=== PATIENT | female | born 1955 ===

== ENCOUNTER 2018-08-22 00:20 | Inpatient (IN) | payer BC ==
[~2018-08-22] VITALS: Ht 152.4 cm; Wt 83.0 kg
[2018-08-22] VITALS (14 sets, daily range): BP systolic 102–157; BP diastolic 52–79; PULSE 59–75; TEMP 97.4–98.4
[2018-08-22] MEDS ORDERED: PROZAC40 MG PO ×2 (00:55)
[2018-08-22] MEDS ORDERED: GLUCOSAMIN 500 PO (00:56)
[2018-08-22] MEDS ORDERED: MOBIC 7.5MG7.5 MG PO (00:57)
[2018-08-22] MEDS ORDERED: TYLENOL 500MG500 MG PO (00:57)
[2018-08-22] MEDS ORDERED: MULTI VITAMINS1 TAB PO (00:58)
[2018-08-22] MEDS ORDERED: MOTRIN 800800 MG/TAB PO (00:59)
[2018-08-22] MEDS ORDERED: RT ALBUTER2.5 MG/0.5 IH (00:59)
[2018-08-22] MEDS ORDERED: ULTRAM 50MG TAB50 MG PO (01:00)
[2018-08-22] MEDS ORDERED: NORCO 325 MG-51 TAB PO (01:01)
--- NOTE | 2018-08-22 01:25 | NUR ---
Pt. arrived to the floor via ems services. Pt. is A&OX3, assessment complete. INT to rt. ac patent. Pt. reports pain at a 2 on pain scale at this time. Pt. denies further needs, call light within reach.
[2018-08-22 02:32] LABS: COLLECTION METHOD CATHETER
[2018-08-22 02:34] LABS: BASO % 0.3 % (0.0-2.0); EOS # 0.1 (0.0-0.7); GRAN # 6.6 (1.4-6.5); GRAN % 68.8 % (42.2-75.2); HEMATOCRIT 40.6 % (37.0-47.0); LYMPH % 21.1 % (20.0-51.0); MEAN CELL VOLUME 91 fl (80.0-100.0); MEAN CORPUSCULAR HEMOGLOBIN 29 pg (27.0-31.0); MEAN CORPUSCULAR HGB CONC 32 g/dl (33.0-37.0); MEAN PLATELET VOLUME 8.8 fl (7.4-10.4); MONO # 0.8 (0.1-0.6); MONO % 8.5 % (1.7-9.3); PLATELET COUNT 200 K/mm3 (130-400); RED BLOOD COUNT 4.45 M/mm3 (4.10-5.30)
[2018-08-22 02:40] LABS: MUCOUS Present /lpf; PH 5 (5-8); SQUAMOUS EPITHELIAL None Seen /hpf; URINE APPEARANCE Clear; URINE BACTERIA None Seen /hpf; URINE BILIRUBIN Negative (NEGATIVE); URINE BLOOD Negative (NEGATIVE); URINE COLOR Yellow; URINE GLUCOSE Negative (NEGATIVE); URINE KETONE Trace (NEGATIVE); URINE LEUKOCYTE ESTERASE Negative (NEGATIVE); URINE NITRATE Negative (NEGATIVE); URINE PROTEIN(semi-quant) 1+ (NEGATIVE); URINE RBC 0-2 /hpf; URINE UROBILINOGEN Negative (NEGATIVE)
[2018-08-22 02:46] LABS: INR 1.2 (0.8-3.0); PROTHROMBIN TIME 13.7 SECONDS (9.7-12.8)
[2018-08-22 02:48] LABS: ALBUMIN 4.1 gm/dL (3.5-5.0); BILIRUBIN,TOTAL 0.4 mg/dL (0.0-1.0); CALCIUM 9.5 mg/dL (8.4-10.2); CREATININE, serum 0.53 mg/dL (0.52-1.25); POTASSIUM 3.9 mmol/L (3.4-5.0); TOTAL PROTEIN 7.1 gm/dL (6.4-8.2)
[2018-08-22 02:55] LABS: PRE ALBUMIN 21.2 mg/dL (17.6-36.0)
[2018-08-22 03:47] LABS: TRICYCLIC ANTIDEPRESS URINE NEGATIVE
--- NOTE | 2018-08-22 07:50 | NUR ---
PATIENT A&O. VSS. BOWEL SOUNDS HYPOACTIVE ALL FOUR QUADRANTS. PATIENT STATES, 'I FEELS QUEEZY THIS MORNING,' BUT DENIES VOMITING. POSITIVE PEDAL PULSES EQUAL BILATERALLY. PEDRITO HOSE TO LLE. SCD'S TO BLE. RIGHT LEG SHORTENED AND EXTERNALLY ROTATED. OPERATIVE FLUIDS TO GRAVITY FLOW TUBING INFUSING TO RIGHT AC IV. SANDHU CATHETER TO DEPENDENT DRAIANGE WITH SCANT AMOUNTS OF YELLOW URINE PRESENT IN SANDHU BAG. PRESENT AT THE BEDSIDE. PATIENT TAKEN TO PERIOP VIA BED. WILL WAIT FOR PATIENT ARRIVAL BACK TO ROOM 344.
--- NOTE | 2018-08-22 10:55 | NUR ---
PATIENT ARRIVED BACK TO ROOM 344 VIA BED FROM PACU. PATIENT A&O. POST-OP VSS. PATIENT'S RIGHT HIP DRESSED WITH AN AQUACEL AND IS CD&I. POSITIVE PEDAL PULSES EQUAL BILATERALLY. CAP REFILL <3 SECONDS. CMS INTACT. PEDRITO MAN AND SCD'S TO BLE. PATIENT TOLERATING SIPS AND CHIPS WITHOUT ANY COMPLAINTS OF N/V. CALL LIGHT WITHIN REACH. WILL CONTINUE TO MONITOR.
--- NOTE | 2018-08-22 11:48 | NUR ---
Patient lives at home with her (Jose) in [place], [place] and plans to return home upon discharge. 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 Patient does use a walker for ambulation as needed, her primary care physician is Dr. Capellan, her pharmacy is [facility] and she does not have advance directives completed at this time. Patient's and local friend network are supportive as needed and there are no further needs at this time.
--- NOTE | 2018-08-22 12:10 | NUR ---
PATIENT TOLERATING CLEAR LIQUIDS WITHOUT N/V. DIET ADVANCED TO GENERAL FOR DINNER. CAP REFILL <3 SECONDS. CMS INTACT. PATIENT STATES THAT HER TOES AND FEET FEEL NUMB AND TINGLY. PATIENT DENIES ANY OTHER NEEDS AT THIS TIME.
--- NOTE | 2018-08-22 14:40 | NUR ---
PATIENT POST-OP VITAL SIGNS COMPLETE. CAP REFILL <3 SECONDS. CMS INTACT. PATIENT ABLE TO FEEL FEET AND TOES. PATIENT INSTRUCTED ON ANKLES PUMPS AND IS. PATIENT DENIES ANY OTHER NEEDS AT THIS TIME.
--- NOTE | 2018-08-22 19:00 | NUR ---
REPORT GIVEN TO DAVID CLINTON.
--- NOTE | 2018-08-22 23:30 | NUR ---
PT MEDICATED WITH BOTH NORCO AND OXYCODONE FOR PAIN TO RT HIP. ICE IN USE.
[2018-08-23 00:14] VITALS: BP 124/65; PULSE 66; TEMP 99.1
[2018-08-23 04:15] VITALS: BP 125/68; PULSE 76; TEMP 99.1
--- NOTE | 2018-08-23 05:25 | NUR ---
PT IN BED. NO c/o N/V. ALTERNATING NORCO AND OXYCODONE FOR PAIN. NEW ICE APPLIED.
[2018-08-23 06:50] LABS: BASO % 0.2 % (0.0-2.0); EOS # 0.1 (0.0-0.7); EOS % 0.8 % (0-4.0); GRAN # 6.5 (1.4-6.5); GRAN % 71.4 % (42.2-75.2); LYMPH # 1.5 (1.2-3.4); MEAN CELL VOLUME 91 fl (80.0-100.0); MEAN CORPUSCULAR HGB CONC 32 g/dl (33.0-37.0); MEAN PLATELET VOLUME 9.2 fl (7.4-10.4); MONO % 11.3 % (1.7-9.3); PLATELET COUNT 152 K/mm3 (130-400); RED BLOOD COUNT 3.75 M/mm3 (4.10-5.30)
[2018-08-23 07:01] LABS: CALCIUM 8.7 mg/dL (8.4-10.2); CREATININE, serum 0.4 mg/dL (0.52-1.25); POTASSIUM 3.6 mmol/L (3.4-5.0)
[2018-08-23 07:09] LABS: MEAN CORPUSCULAR HEMOGLOBIN 29 pg (27.0-31.0)
[2018-08-23 10:18] VITALS: BP 107/61; PULSE 67; TEMP 97.9
[2018-08-23 13:50] VITALS: BP 101/53; PULSE 67; TEMP 98.1
[2018-08-23 20:00] VITALS: BP 123/60; PULSE 70; TEMP 97.3
--- NOTE | 2018-08-23 20:15 | NUR ---
Pt. laying in bed at this time. Pt. is A&OX3, assessment complete. INT to rt. ac patent. Dressing to rt. hip CDI with aquacell. Pt. reported pain at a 7 on pain scale, gave pain meds per orders. Pt. assisted to chair at this time. Pt. did very well. Pt. denies further needs, call light within reach.
[2018-08-24] VITALS: BP 121/65; PULSE 79; TEMP 98.7
[2018-08-24 03:36] VITALS: BP 113/57; PULSE 70; TEMP 98.6
--- NOTE | 2018-08-24 05:23 | NUR ---
Pt. slept off and on through the night. Pt. remains A&OX3. INT to rt. ac patent. Pt. reports pain to rt. hip at a 8 on pain scale, gave pain meds per orders. Pt. denies further needs, call light within reach.
[2018-08-24 06:22] LABS: BASO % 0.3 % (0.0-2.0); EOS # 0.2 (0.0-0.7); EOS % 2.2 % (0-4.0); GRAN # 6.4 (1.4-6.5); GRAN % 66.9 % (42.2-75.2); HEMOGLOBIN 10.8 g/dl (12.5-16.0); LYMPH # 1.9 (1.2-3.4); LYMPH % 20.1 % (20.0-51.0); MEAN CELL VOLUME 92 fl (80.0-100.0); MEAN CORPUSCULAR HEMOGLOBIN 29 pg (27.0-31.0); MEAN CORPUSCULAR HGB CONC 32 g/dl (33.0-37.0); MONO % 10.2 % (1.7-9.3); PLATELET COUNT 154 K/mm3 (130-400); RED BLOOD COUNT 3.68 M/mm3 (4.10-5.30); REDCELL DISTRIBUTION WIDTH-CV 13.2 % (11.5-14.5)
[2018-08-24 06:31] LABS: HEMATOCRIT 33.7 % (37.0-47.0)
[2018-08-24 07:15] VITALS: BP 114/58; PULSE 72; TEMP 98.6
[2018-08-24] MEDS ORDERED: SENOKOT S 50 MG1 TAB PO (08:04)
[2018-08-24] MEDS ORDERED: ROXICODONE 55 MG/TAB PO (08:04)
[2018-08-24] MEDS ORDERED: OSCAL 500 TAB500 MG PO (08:04)
[2018-08-24] MEDS ORDERED: NORCO 325 MG-51 TAB PO (08:04)
[2018-08-24] MEDS ORDERED: VITAMIN C500 MG PO (08:04)
--- NOTE | 2018-08-24 08:30 | NUR ---
Patient in bed resting. Alert and oriented x 3. Shift assessment complete. Patient up to bed with walker. Student nurse working with patient. Aquacell to right hip with minimal drainage present. Ice to right hip. SCDs and Tedhose to BLE while in bed. Denies further needs at this time.
[2018-08-24] MEDS ORDERED: ASPIRIN 32325 MG/TA1 PO (09:31)
--- NOTE | 2018-08-24 09:39 | NUR ---
SW and SW student attended clinical rounding and met with patient to discuss discharge today. Patient would like to do outpatient therapy at [facility] and reports she has a 4ww and the other equipment she will need at home. BALDEMAR informed cardiac care unit nurse of where patient would like her outpatient therapy to be scheduled. Patient is dc home today with family support and outpatient therapy. No other unmet needs identified.
[2018-08-24 11:02] VITALS: BP 105/62; PULSE 72; TEMP 98.1
--- NOTE | 2018-08-24 11:49 | NUR ---
Initial visit; Patient thanked Cafeteria Table Attendant for looking in on her, offering prayer and keeping her in Cafeteria Table Attendant's prayers.
--- NOTE | 2018-08-24 13:45 | NUR ---
Discharge education provided for patient. Educated patient on s/sx of infection and when to call provider. Educated on medication safety and taking medications as prescribed. Hip precautions reviewed with patient. Patient reminded to keep follow up appointments. INT to right AC discontinued, tip intact, tolerated procedure well. Patient verbalized understanding. States pain 6/10 to right hip at this time would like to take something for pain before leaving. Medications given per orders. Denies further needs at this time. Patient will call when she is ready to leave.
--- NOTE | 2018-08-24 13:53 | NUR ---
Patient out by wheelchair with surgical staff.
== END 2018-08-24 13:55 | disposition home or self-care (01) | DRG 470 ==
LOC: SURG 00:20
PROVIDERS: Hospitalist; Nurse Practitioner Family; Orthopaedic Surgery Sports Medicine; ADMIT Hospitalist
PROC: 0SR90JA Replacement of Right Hip Joint with Synthetic Substitute, Uncemented, Open Approach (ICD-10-PCS; principal; 2018-08-22 08:30)
DX: S72.061A Displaced articular fracture of head of right femur, initial encounter for closed fracture (principal); N81.4 Uterovaginal prolapse, unspecified; F32.9 Major depressive disorder, single episode, unspecified; Z87.891 Personal history of nicotine dependence; M16.11 Unilateral primary osteoarthritis, right hip; G89.29 Other chronic pain; J44.9 Chronic obstructive pulmonary disease, unspecified; Z66 Do not resuscitate; W18.2XXA Fall in (into) shower or empty bathtub, initial encounter
CPT/HCPCS: 99222-AI; 99232-AI; 99239; A9284; C1776; J0690; J1885; J2250; J2704; J2795; J3010

== ENCOUNTER 2018-09-09 08:46 | Inpatient (IN) | payer BC ==
[~2018-09-09] VITALS: Ht 175.3 cm; Wt 76.9 kg
[~2018-09-09 08:46] MED LIST: ASPIRIN 32325 MG/TA1 PO; GLUCOSAMIN 500 PO; MOBIC 7.5MG7.5 MG PO; MOTRIN 800800 MG/TAB PO; MULTI VITAMINS1 TAB PO; NORCO 325 MG-51 TAB PO; OSCAL 500 TAB500 MG PO; PROZAC40 MG PO; ROXICODONE 55 MG/TAB PO; RT ALBUTER2.5 MG/0.5 IH; SENOKOT S 50 MG1 TAB PO; TYLENOL 500MG500 MG PO; ULTRAM 50MG TAB50 MG PO; VITAMIN C500 MG PO
[2018-09-14] VITALS (11 sets, daily range): BP systolic 118–162; BP diastolic 67–90; PULSE 53–72; TEMP 97.1–98.2
--- NOTE | 2018-09-14 06:15 | NUR ---
Patient admitted to the floor at 0515 and prepared for surgery with no incidents. Admission B and assessment completed. Med-rec and allergies reviewed and confirmed. Right hip scrubbed and marked for surgery, pedal pulses marked, PEDRITO hose applied to LLE, 20 g IV started to left forearm and pre-op medications given. Patient is awaiting to be taken down to surgery at this time.
--- NOTE | 2018-09-14 10:25 | NUR ---
PATIENT IS A&O. VSS. DENIES PAINL. PATIENT IS UNABLE TO MOVE BLE AT THIS TIME. RTH DRESSING IS CD&I WITH AQUACEL. TEDS & SCD'S TO BLE. POSITIVE PEDAL PULSES TO BLE. PACU REPORTED BLADDER SCAN OF 148CC. PATIENT DENIES NEED TO VOID AT THIS TIME. IV FLUIDS INFUSING VIA PUMP INTO LEFT HAND. NO C/O N/V. LIQUIDS AT BEDSIDE. HEAD TO TOE ASSESSMENT WNL. AT BEDSIDE. NO OTHER NEEDS AT THIS TIME. CALL LIGHT IN REACH.
--- NOTE | 2018-09-14 11:25 | NUR ---
PATIENT STILL RESTING COMFORTABLY. ABLE TO SLIGHTLY WIGGLE TOES, NOT REPORTS SHE CAN'T FEEL MUCH. VSS. NO NEEDS.
--- NOTE | 2018-09-14 12:25 | NUR ---
PATIENT CALLED OUT C/O SEVERE SUDDEN PAIN. PATIENT WAS PREVIOUSLY NOT MOVING BLE AND NOW IS HAVING SEVER PAIN THAT SHE REPORTS JUST HAPPENED ALL AT ONCE. GAVE PRN ROXICODONE 15MG PO PER ORDERS.
--- NOTE | 2018-09-14 12:45 | NUR ---
PATIENT REPEATEDLY CALLING OUT IN PAIN WHILE NURSING TRYS TO GET AN ORDER FOR IV PAIN MEDS. ANESTHESIA DEFFERED TO ORTHO. LEFT MESSAGE FOR HERNESTO
--- NOTE | 2018-09-14 12:55 | NUR ---
GAVE NEW PRN ORDER FOR DILAUDID 1MG IV. ALSO GAVE FIRST DOSE OF IV TORADOL. REPOSITIONED PATIENT TO COMFORT. ICE TO RIGHT HIP. PILLOW APPLIED UNDER RIGHT KNEE. TEDS AND SCD'S INPLACE. WILL MONITOR
--- NOTE | 2018-09-14 14:48 | NUR ---
SW met with patient to discuss discharge planning. At this time, patient plans to return home and receive outpatient therapy in [place]. Patient lives independently at home with her . Patient's PCP is Dr Gaytan and she obtains prescriptions from [facility] pharmacy. Patient uses a walker for ambulation but no other DME is reported and she does not use any home health services. Jazzy does not have a DPOA but will speak with her about completing one. SW will return if patient would like to complete a DPOA. BALDEMAR does not anticipate any discharge needs.
--- NOTE | 2018-09-14 14:55 | NUR ---
PATIENT STILL C/O SEVER PAIN IN RLE STATING "GOD HELP ME" AND GRIPPING THE BED RAILS. GAVE PRN DILAUDID 1MG IV. ICE TO RIGHT HIP. PILLOW UNDER RIGHT KNEE. TEDS & SCD'S TO BLE. WARM BLANKET APPLIED.
--- NOTE | 2018-09-14 20:00 | NUR ---
Pt. laying in bed at this time. Pt. is A&OX3, assessment complete. IV to lt. forearm patent IV fluids infusing per orders. Dressing to rt. hip CDI. Pt. reports pain at a 8 on pain scale. Pt. has had a difficult time getting pain under control. Will continue with pain management schedule. Pt. denies further needs at this time. Call light within reach.
--- NOTE | 2018-09-15 06:20 | NUR ---
Pt. reports not sleeping much through the night. Pt. has had a lot of pain through the night. Pain meds given per orders. Pt. does report that her pain has improved through the night. Dressing to rt. hip remains CDI. Pt. denies further needs at this time. Call light within reach.
--- NOTE | 2018-09-15 06:45 | NUR ---
awake resting in bed, bedside shift report received from DAVID Cannon
[2018-09-15 06:53] LABS: HEMATOCRIT 32.2 % (37.0-47.0)
[2018-09-15 07:24] VITALS: BP 115/68; PULSE 71; TEMP 98.3
--- NOTE | 2018-09-15 08:00 | NUR ---
c/o pain 02/15, medicated with dilaudid 0.5mg slow IV
--- NOTE | 2018-09-15 09:00 | NUR ---
medicated with roxicodone 15mg po for c/os pain 11/15, physical therapy in to work with patient
--- NOTE | 2018-09-15 09:11 | NUR ---
Initial visit; Prachi thanked Pole Framer for looking in on her and prayed with Pole Framer for her healing and added strength for Pole Framer to do her work.
--- NOTE | 2018-09-15 09:20 | NUR ---
assisted up to recliner with assistance of therapist, c/o some nausea while up and moving but better after into recliner
--- NOTE | 2018-09-15 09:52 | NUR ---
resting in chair with some moaning at times, full assessment completed, see interventions for further info,
--- NOTE | 2018-09-15 11:26 | NUR ---
appears to be sleeping, in bed with eyes closed, resp quiet and easy
[2018-09-15 12:12] VITALS: BP 117/67; PULSE 66; TEMP 97.6
--- NOTE | 2018-09-15 12:34 | NUR ---
medicated with roxicodone 15mg for c/os pain 02/15 and in anticipation of therapy
--- NOTE | 2018-09-15 13:30 | NUR ---
ambulated back to room and into bed to rest
--- NOTE | 2018-09-15 15:00 | NUR ---
remains resting in bed without c/os
--- NOTE | 2018-09-15 16:25 | NUR ---
resting in bed visiting with , c/o pain 10/15 and medicated with roxicodone 15mg po per her request
[2018-09-15 16:53] VITALS: BP 111/54; PULSE 66; TEMP 98.7
--- NOTE | 2018-09-15 17:30 | NUR ---
was up to bathroom with assistance of and incontinent of urine on bathroom floor, care provided
--- NOTE | 2018-09-15 19:07 | NUR ---
bedside shift report given to Sheila, RN
[2018-09-15 19:32] VITALS: BP 129/62; PULSE 70; TEMP 98.5
[2018-09-16] VITALS: BP 117/68; PULSE 71; TEMP 98.2
--- NOTE | 2018-09-16 02:07 | NUR ---
Patient given pain medication at 2039 and 29. Patient had requested the bed gimenez and this nurse educated patient that she needed to be up and walking to the bathroom. Verbalized understanding. Site to right hip noted to be red and entire leg noted to be warm to touch. Patient noted to have emesis when getting up to go to the bathroom. Crackers given before 29 pain medication administered. Currently resting with eyes closed.
[2018-09-16 03:44] VITALS: BP 129/67; PULSE 96; TEMP 98.1
[2018-09-16 05:43] LABS: HEMOGLOBIN 9.9 g/dl (12.5-16.0)
--- NOTE | 2018-09-16 06:19 | NUR ---
Patient rested well throughout the night. Pain remained well controlled. Currently resting in bed with eyes closed.
--- NOTE | 2018-09-16 06:57 | NUR ---
Report from Roopa HERNANDEZ and Gracia HERNANDEZ>
--- NOTE | 2018-09-16 07:03 | NUR ---
Report given to DAVID Garza.
[2018-09-16 07:58] VITALS: BP 119/64; PULSE 68; TEMP 98.7
[2018-09-16 12:05] VITALS: BP 129/65; PULSE 67; TEMP 97.4
[2018-09-16] MEDS ORDERED: ROXICODONE 55 MG/TAB PO (13:28)
--- NOTE | 2018-09-16 16:50 | NUR ---
discharge instructions provided to patient. questions answered. pt taken by wheel chair to front.
== END 2018-09-16 16:51 | disposition home or self-care (01) | DRG 468 ==
LOC: JCC 09-14 05:17
PROVIDERS: ADMIT Orthopaedic Surgery Sports Medicine
PROC: 0SPR0JZ Removal of Synthetic Substitute from Right Hip Joint, Femoral Surface, Open Approach (ICD-10-PCS; 2018-09-14)
PROC: 0QS604Z Reposition Right Upper Femur with Internal Fixation Device, Open Approach (ICD-10-PCS; 2018-09-14)
PROC: 0SRR0JA Replacement of Right Hip Joint, Femoral Surface with Synthetic Substitute, Uncemented, Open Approach (ICD-10-PCS; principal; 2018-09-14 07:30)
DX: T84.010A Broken internal right hip prosthesis, initial encounter (principal); Z66 Do not resuscitate; F41.8 Other specified anxiety disorders; Z87.891 Personal history of nicotine dependence
CPT/HCPCS: A9284; C1776; J0690; J1170; J1885; J2250; J2704; J3010; J3370; J7120

== ENCOUNTER 2019-04-28 20:31 | Emergency (ER) | payer BC ==
[~2019-04-28] VITALS: Ht 175.3 cm; Wt 85.0 kg
[2019-04-28 20:37] VITALS: BP 158/77; PULSE 60; TEMP 97.9
== END 2019-04-28 21:23 | disposition home or self-care (01) ==
LOC: COL.ER 20:31
DX: S46.211A Strain of muscle, fascia and tendon of other parts of biceps, right arm, initial encounter (principal); F32.9 Major depressive disorder, single episode, unspecified; Z79.82 Long term (current) use of aspirin; W01.0XXA Fall on same level from slipping, tripping and stumbling without subsequent striking against object, initial encounter; Y92.59 Other trade areas as the place of occurrence of the external cause